=== PATIENT | male | born 2000 | race African-American/Black ===

== ENCOUNTER 2019-12-20 15:12 | Emergency (ER) | payer SELFPAY ==
[~2019-12-20] VITALS: Ht 177.8 cm; Wt 105.9 kg
[2019-12-20 15:32] VITALS: BP 122/88; PULSE 88
[2019-12-20] MEDS ORDERED: ANUSOL HC CREAM30 GM TP (15:53)
[2019-12-20 15:58] VITALS: TEMP 98.2
== END 2019-12-20 16:34 | disposition home or self-care (01) ==
LOC: COL.ER 15:12
DX: K64.8 Other hemorrhoids (principal)
CPT/HCPCS: J0696